=== PATIENT | female | born 1940 | race Caucasian/White ===

== ENCOUNTER → 2016-12-29 | Outpatient (REF) | payer MEDICARE ==
[2016-12-29 17:53] LABS: MEAN CORPUSCULAR HEMOGLOBIN 30.4 pg (27.0-33.0); MEAN CORPUSCULAR HGB CONC 33.2 g/dl (32.0-36.5); MEAN CORPUSCULAR VOLUME 91.3 fl (80.0-96.0); RED CELL DISTRIBUTION WIDTH 13.6 % (11.5-14.5); WHITE BLOOD COUNT 8.1 K/mm3 (4.0-10.0)
== END ==
LOC: M LABDRAWC 16:18
PROVIDERS: ATTEND Internal Medicine Gastroenterology
DX: R10.9 Unspecified abdominal pain (principal)

== ENCOUNTER → 2017-01-22 | Outpatient (REF) | payer MEDICARE ==
[2017-01-22 12:53] LABS: MICROSCOPIC INDICATED? MAN YES (NO)
[2017-01-22 12:56] LABS: BACTERIA, URINE NONE SEEN; HYALINE CAST, URINE NONE SEEN /lpf (0-1); MICROSCOPIC EXAM PERFORMED; RBC, URINE 0-1 /hpf (0-3); SQUAMOUS EPITHELIAL CELL URINE NONE SEEN /hpf (SMALL AMT)
== END ==
LOC: M LAB REF 12:24
PROVIDERS: ATTEND Internal Medicine
DX: R39.15 Urgency of urination (principal)

== ENCOUNTER → 2017-03-12 | Outpatient (REF) | payer MEDICARE | LOC: M LAB REF 16:22 | PROVIDERS: ATTEND Obstetrics & Gynecology | DX: N39.3 Stress incontinence (female) (male) (principal) ==

== ENCOUNTER → 2017-05-28 | Outpatient (CLI) | payer MEDICARE ==
--- NOTE | 2017-05-28 10:12 | REPMRS ---
Patient History The patient states she had a clinical breast exam in 08/23 Patient is postmenopausal and has history of skin cancer at age 66. Family history of prostate cancer in maternal cousin. Took hormonal contraceptives for 1 year. Took estrogen for 2 years. Took progesterone for 2 years. Took unspecified hormones for 4 years. Digital Woman Screen Mammo: May 28, 2017 - Exam #: [id number] Bilateral CC and MLO view(s) were taken. Technologist: Ewa Rajan, Technologist Prior study comparison: August 12, 2015, digital woman screen mammo performed at [facility]. August 09, 2014, bilateral bilat screen digital mammo, performed at [facility] ([facility]). August 08, 2013, bilateral bilat screen digital mammo, performed at [facility] ([facility]). FINDINGS: There are scattered fibroglandular densities. There has been no change in the appearance of the mammogram from the prior studies. There is a mild amount of scattered fibroglandular density which is fairly symmetric. There is no interval development of dominant mass, architectural distortion, or clustered microcalcification suggestive of malignancy. ASSESSMENT: BI-RADS/ACR category 1 mammogram. Negative. Recommendation Routine screening mammogram in 1 year (for women over age 40). This mammogram was interpreted with the aid of an FDA-approved computer-aided dectection system. Electronically Signed By: Italo Gates MD 05/28/17 [id number]
== END ==
LOC: M WHC 09:25
PROVIDERS: ATTEND Internal Medicine
DX: Z12.31 Encounter for screening mammogram for malignant neoplasm of breast (principal)

== ENCOUNTER → 2018-09-23 | Outpatient (REF) | payer MEDICARE ==
[2018-09-23 13:09] LABS: APPEARANCE, URINE HAZY (CLEAR); BACTERIA, URINE AUTO 2+ (NEGATIVE); BILIRUBIN, URINE AUTO NEGATIVE (NEGATIVE); BLOOD, URINE BLOOD 2+ (NEGATIVE); COLOR, URINE YELLOW (YELLOW); GLUCOSE, URINE (UA) AUTO NEGATIVE (NEGATIVE); KETONE, URINE AUTO NEGATIVE (NEGATIVE); LEUKOCYTE ESTERASE, URINE AUTO 3+ (NEGATIVE); NITRITE, URINE AUTO NEGATIVE (NEGATIVE); PROTEIN, URINE AUTO NEGATIVE (NEGATIVE); RBC, URINE AUTO 10 /HPF (0-3); SPECIFIC GRAVITY URINE AUTO 1.005 (1.002-1.035); SQUAMOUS EPITHELIAL CELL UR AU 0 /HPF (0-6); UROBILINOGEN, URINE AUTO 0.2 mg/dL (0.0-2.0); WBC, URINE AUTO TNTC /HPF (0-3)
== END ==
LOC: M LAB REF 12:24
DX: R39.89 Other symptoms and signs involving the genitourinary system (principal)
CPT/HCPCS: 81001

== ENCOUNTER → 2018-12-25 | Outpatient (REF) | payer MEDICARE ==
[2018-12-25 13:23] LABS: CLOSTRIDIUM DIFFICILE PCR NEGATIVE (NEGATIVE)
== END ==
LOC: M LAB REF 10:47
PROVIDERS: ATTEND Internal Medicine Gastroenterology
DX: R19.7 Diarrhea, unspecified (principal)

== ENCOUNTER → 2019-03-30 | Outpatient (REF) | payer MEDICARE | LOC: M LAB REF 16:06 | PROVIDERS: ATTEND Physician Assistant | DX: R30.0 Dysuria (principal) ==

== ENCOUNTER → 2019-11-16 | Outpatient (REF) | payer MEDICARE ==
[2019-11-16 18:41] LABS: BASO # 0.1 10^3/uL (0.0-0.2); BASO % 0.8 % (0.0-1.0); EOS # 0.2 10^3/uL (0.0-0.5); EOS % 2.7 % (0.0-3.0); HEMATOCRIT 34.1 % (36.0-47.0); HEMOGLOBIN 11.1 g/dl (12.0-15.5); LYMPH # 2.4 10^3/uL (1.5-5.0); LYMPH % 33.1 % (24.0-44.0); MEAN CORPUSCULAR HEMOGLOBIN 29.8 pg (27.0-33.0); MEAN CORPUSCULAR HGB CONC 32.6 g/dl (32.0-36.5); MEAN CORPUSCULAR VOLUME 91.7 fl (80.0-96.0); MONO # 0.7 10^3/uL (0.0-0.8); MONO % 8.8 % (0.0-5.0); NEUTROPHILS % 54.3 % (36.0-66.0); PLATELET COUNT, AUTOMATED 220 10^3/uL (150-450); RED BLOOD COUNT 3.72 10^6/uL (4.00-5.40); WHITE BLOOD COUNT 7.4 10^3/uL (4.0-10.0)
[2019-11-16 19:08] LABS: CALCIUM LEVEL 9.1 MG/DL (8.8-10.2); CREATININE FOR GFR 1.15 MG/DL (0.55-1.30); GLOMERULAR FILTRATION RATE 48.5 (>39); MAGNESIUM LEVEL 2.1 MG/DL (1.8-2.4); POTASSIUM SERUM 4.6 MEQ/L (3.5-5.1)
== END ==
LOC: M LABDRAWC 18:09
PROVIDERS: ATTEND Internal Medicine
DX: D64.9 Anemia, unspecified (principal); E83.42 Hypomagnesemia; I10 Essential (primary) hypertension

== ENCOUNTER → 2019-11-20 | Outpatient (REF) | payer MEDICARE ==
[2019-11-20 18:52] LABS: PERCENT SATURATION 26.1 % (13.2-45.0)
== END ==
LOC: M LAB REF 16:54
PROVIDERS: ATTEND Internal Medicine
DX: D64.9 Anemia, unspecified (principal)

== ENCOUNTER → 2019-12-19 | Outpatient (REF) | payer MEDICARE ==
[2019-12-19 17:07] LABS: BASO # 0.1 10^3/uL (0.0-0.2); BASO % 0.9 % (0.0-1.0); EOS # 0.3 10^3/uL (0.0-0.5); HEMATOCRIT 34.9 % (36.0-47.0); HEMOGLOBIN 11.2 g/dl (12.0-15.5); LYMPH # 2.4 10^3/uL (1.5-5.0); LYMPH % 35.6 % (24.0-44.0); MEAN CORPUSCULAR HEMOGLOBIN 29.9 pg (27.0-33.0); MEAN CORPUSCULAR HGB CONC 32.1 g/dl (32.0-36.5); MEAN CORPUSCULAR VOLUME 93.1 fl (80.0-96.0); MONO # 0.7 10^3/uL (0.0-0.8); MONO % 9.7 % (0.0-5.0); NEUTROPHILS # 3.4 10^3/uL (1.5-8.5); NEUTROPHILS % 49.4 % (36.0-66.0); PLATELET COUNT, AUTOMATED 225 10^3/uL (150-450); RED BLOOD COUNT 3.75 10^6/uL (4.00-5.40); WHITE BLOOD COUNT 6.8 10^3/uL (4.0-10.0)
[2019-12-19 17:35] LABS: CREATININE FOR GFR 1.13 MG/DL (0.55-1.30); GLOMERULAR FILTRATION RATE 49.4 (>39); POTASSIUM SERUM 4.9 MEQ/L (3.5-5.1)
== END ==
LOC: M LABDRAWC 16:27
PROVIDERS: ATTEND Internal Medicine
DX: Z00.00 Encounter for general adult medical examination without abnormal findings (principal)

== ENCOUNTER → 2020-01-17 | Outpatient (REF) | payer MEDICARE ==
[2020-01-17 16:45] LABS: BASO # 0.1 10^3/uL (0.0-0.2); BASO % 0.9 % (0.0-1.0); EOS # 0.3 10^3/uL (0.0-0.5); EOS % 4.2 % (0.0-3.0); HEMATOCRIT 34.7 % (36.0-47.0); HEMOGLOBIN 11.3 g/dl (12.0-15.5); LYMPH # 2.5 10^3/uL (1.5-5.0); LYMPH % 38.6 % (24.0-44.0); MEAN CORPUSCULAR HEMOGLOBIN 29.7 pg (27.0-33.0); MEAN CORPUSCULAR HGB CONC 32.6 g/dl (32.0-36.5); MEAN CORPUSCULAR VOLUME 91.1 fl (80.0-96.0); MONO # 0.7 10^3/uL (0.0-0.8); MONO % 10.8 % (0.0-5.0); NEUTROPHILS # 2.9 10^3/uL (1.5-8.5); PLATELET COUNT, AUTOMATED 234 10^3/uL (150-450); RED BLOOD COUNT 3.81 10^6/uL (4.00-5.40); WHITE BLOOD COUNT 6.5 10^3/uL (4.0-10.0)
[2020-01-17 17:22] LABS: CREATININE FOR GFR 1.08 MG/DL (0.55-1.30); GLOMERULAR FILTRATION RATE 52.1 (>39); POTASSIUM SERUM 4.8 MEQ/L (3.5-5.1)
== END ==
LOC: M LABDRAWC 16:22
PROVIDERS: ATTEND Internal Medicine
DX: Z13.89 Encounter for screening for other disorder (principal); D64.9 Anemia, unspecified

== ENCOUNTER → 2020-01-24 | Outpatient (REF) | payer MEDICARE ==
[2020-01-24 12:23] LABS: CALCIUM LEVEL 8.7 MG/DL (8.8-10.2); CREATININE FOR GFR 1.18 MG/DL (0.55-1.30); MAGNESIUM LEVEL 2.3 MG/DL (1.8-2.4); POTASSIUM SERUM 3.9 MEQ/L (3.5-5.1)
== END ==
LOC: M LABDRAWC 11:37
PROVIDERS: ATTEND Internal Medicine
DX: N18.3 Chronic kidney disease, stage 3 (moderate) (principal); E83.42 Hypomagnesemia

== ENCOUNTER → 2020-10-11 | Outpatient (REF) | payer MEDICARE ==
[2020-10-11 16:18] LABS: BASO % 0.6 % (0.0-1.0); EOS # 0.2 10^3/uL (0.0-0.5); EOS % 2.5 % (0.0-3.0); HEMATOCRIT 35.5 % (36.0-47.0); HEMOGLOBIN 11.5 g/dl (12.0-15.5); LYMPH # 2.5 10^3/uL (1.5-5.0); MEAN CORPUSCULAR HEMOGLOBIN 29.9 pg (27.0-33.0); MEAN CORPUSCULAR HGB CONC 32.4 g/dl (32.0-36.5); MEAN CORPUSCULAR VOLUME 92.2 fl (80.0-96.0); MONO # 0.7 10^3/uL (0.0-0.8); MONO % 10.2 % (0.0-5.0); NEUTROPHILS # 3.1 10^3/uL (1.5-8.5); NEUTROPHILS % 47.5 % (36.0-66.0); PLATELET COUNT, AUTOMATED 208 10^3/uL (150-450); RED BLOOD COUNT 3.85 10^6/uL (4.00-5.40); WHITE BLOOD COUNT 6.4 10^3/uL (4.0-10.0)
[2020-10-11 16:55] LABS: CALCIUM LEVEL 9.2 MG/DL (8.8-10.2); CREATININE FOR GFR 1.39 MG/DL (0.55-1.30); GLOMERULAR FILTRATION RATE 38.8 (>32); MAGNESIUM LEVEL 2.1 MG/DL (1.8-2.4); POTASSIUM SERUM 4.3 MEQ/L (3.5-5.1); THYROID STIMULATING HORMONE 3.09 uIU/ML (0.358-3.740)
== END ==
LOC: M LABDRAWC 15:42
PROVIDERS: ATTEND Internal Medicine
DX: I12.9 Hypertensive chronic kidney disease with stage 1 through stage 4 chronic kidney disease, or unspecified chronic kidney disease (principal); E03.9 Hypothyroidism, unspecified; E83.42 Hypomagnesemia; N18.9 Chronic kidney disease, unspecified; D63.1 Anemia in chronic kidney disease

== ENCOUNTER → 2020-10-28 | Outpatient (REF) | payer MEDICARE ==
[2020-10-28 17:17] LABS: CALCIUM LEVEL 8.6 MG/DL (8.8-10.2); CREATININE FOR GFR 1.16 MG/DL (0.55-1.30); GLOMERULAR FILTRATION RATE 47.9 (>32); POTASSIUM SERUM 3.8 MEQ/L (3.5-5.1)
== END ==
LOC: M LABDRAWC 16:08
PROVIDERS: ATTEND Internal Medicine
DX: I12.9 Hypertensive chronic kidney disease with stage 1 through stage 4 chronic kidney disease, or unspecified chronic kidney disease (principal)

== ENCOUNTER → 2021-01-08 | Outpatient (REF) | payer MEDICARE | LOC: M LAB REF 16:44 | PROVIDERS: ATTEND Internal Medicine | DX: R30.0 Dysuria (principal) ==

== ENCOUNTER → 2021-04-11 | Outpatient (CLI) | payer MEDICARE ==
--- NOTE | 2021-04-12 17:12 | REPVR ---
PROCEDURE INFORMATION: Exam: MR Head Without Contrast Exam date and time: 04/11/2021 3:08 PM Age: 80 years old Clinical indication: Other: Lt side weakness w/ vertigo TECHNIQUE: Imaging protocol: MR of the head without contrast. COMPARISON: No relevant prior studies available. FINDINGS: Brain: The brain demonstrates moderate generalized volume loss. Foci of increased signal intensity in the deep and subcortical white matter on the T2 weighted imaging most likely representing mild chronic small vessel ischemic change. On the diffusion-weighted sequence, small focus of increased signal intensity in the right midline aspect of the splenium of the corpus callosum, images 20 and 21 of series 404. There is correlative slightly diminished signal intensity on the ADC map. The T2 weighted sequence demonstrates a subtle focus of crescentic increased signal intensity on image 16 of series 601. No parenchymal hemorrhage. Cerebral ventricles: The ventricles are enlarged in keeping with volume loss. Bones/joints: Unremarkable. Paranasal sinuses: Normal as visualized. No acute sinusitis. Mastoid air cells: Normal as visualized. No mastoid effusion. Orbital cavity: Unremarkable. Soft tissues: Unremarkable. 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 Electronically signed by: Pili Hernandez On 04/12/2021 17:12:08 PM
== END ==
LOC: M RAD 13:53
PROVIDERS: ATTEND Internal Medicine
DX: I63.9 Cerebral infarction, unspecified (principal); R42 Dizziness and giddiness

== ENCOUNTER → 2021-04-21 | Outpatient (CLI) | payer MEDICARE ==
--- NOTE | 2021-04-21 11:45 | REP ---
INDICATION: NEW CVA COMPARISON: 02/27/2010. TECHNIQUE: Real-time ultrasound evaluation and duplex Doppler interrogation of the extracranial carotid vasculature is performed. FINDINGS: There is mild plaquing and narrowing in both carotid bulbs extending into the internal and external carotid arteries. Luminal narrowing is less than 50%. There is no evidence of hemodynamically significant stenosis of either internal carotid artery. Normal flow velocities are seen. The vertebral arteries demonstrate normal direction of flow. RIGHT LEFT Peak systolic velocity ICA 107.4 cm/s 104.7 cm/s End diastolic velocity ICA 31.7 cm/s 26.2 cm/s Peak systolic velocity CCA 90.7 cm/s 119.1cm/s Peak systolic velocity ECA 66.4 cm/s 86.1 cm/s ICA/CCA ratio 1.2 0.9 IMPRESSION: Bilateral luminal narrowing of the internal carotid arteries less than 50%. No evidence of hemodynamically significant stenosis. <Electronically signed by Dao Espinal > 04/21/21 [id number]
== END ==
LOC: M RAD 10:43
PROVIDERS: ATTEND Internal Medicine
DX: I63.9 Cerebral infarction, unspecified (principal)

== ENCOUNTER 2021-06-09 07:39 | Inpatient (IN) | payer MEDICARE ==
[~2021-06-09] VITALS: Ht 147.3 cm; Wt 58.2 kg
[2021-06-09] MEDS ORDERED: ATOR1TAB21 PO (08:26)
[2021-06-09] MEDS ORDERED: PANT40TA29 PO (08:26)
[2021-06-09] MEDS ORDERED: LORA1TAB4 PO (08:26)
[2021-06-09] MEDS ORDERED: SERT25TA21 PO (08:26)
[2021-06-09] MEDS ORDERED: FURO20TA2 PO (08:26)
[2021-06-09] MEDS ORDERED: ATOR1TAB19 (08:26)
[2021-06-09] MEDS ORDERED: SPIR-10 PO (08:26)
[2021-06-09] MEDS ORDERED: SYNT75TA PO (08:26)
[2021-06-09] MEDS ORDERED: POTA1TAB23 PO (08:26)
[2021-06-09] MEDS ORDERED: BUSP10TA PO (08:26)
[2021-06-09] MEDS ORDERED: AMLO2.5T3 PO (08:26)
[2021-06-09] MEDS ORDERED: ATEN25TA PO (08:26)
[2021-06-09] MEDS ORDERED: CLOPIDOGREL 75 MG TAB PO SCH (09:00)
--- NOTE | 2021-06-09 09:10 | REP ---
INDICATION: CVA - Nursing interventions must not delay CT. COMPARISON: None. TECHNIQUE: CT brain performed in the axial plane. Coronal reconstruction images are performed. FINDINGS: There is moderate atrophy. There is no midline shift or mass effect. There are mild patchy periventricular small vessel ischemic changes likely chronic in nature. There is no acute intracranial hemorrhage. There is no extra-axial fluid collection. Calvarium is intact. The visualized paranasal sinuses and mastoid air cells are clear. There are vascular calcifications in the carotid siphons. IMPRESSION: Chronic atrophy and periventricular small vessel ischemic changes. No acute intracranial hemorrhage, midline shift or mass effect. <Electronically signed by Dao Espinal > 06/09/21 [id number]
--- NOTE | 2021-06-09 09:14 | REP ---
INDICATION: CVA. COMPARISON: 04/25/2015. TECHNIQUE: Single portable AP view of the chest was performed. FINDINGS: There is no acute infiltrate or pulmonary edema. There is mild left ventricular prominence. There is mild calcification and tortuosity of the thoracic aorta. The mediastinal silhouette is otherwise unremarkable. IMPRESSION: No acute pulmonary disease. <Electronically signed by Dao Espinal > 06/09/21 0920
[2021-06-09] MEDS ORDERED: MECL-86 PO (09:15)
[2021-06-09] MEDS ORDERED: D31000TA2 PO (09:15)
[2021-06-09] MEDS ORDERED: META28.32 PO (09:15)
[2021-06-09] MEDS ORDERED: CVS500CA5 PO (09:15)
[2021-06-09] MEDS ORDERED: VITA-158 PO (09:15)
[2021-06-09] MEDS ORDERED: KRIL1CAP7 PO (09:15)
[2021-06-09] MEDS ORDERED: VITMTA PO (09:15)
[2021-06-09] MEDS ORDERED: ASPI81TA26 PO (09:15)
[2021-06-09] MEDS ORDERED: ALLE180T33 PO (09:15)
[2021-06-09] MEDS ORDERED: CITRTAB16 PO (09:15)
[2021-06-09] MEDS ORDERED: COEN100T PO (09:15)
[2021-06-09] MEDS ORDERED: THER1GEL OU (09:15)
[2021-06-09] MEDS ORDERED: ACET500T15 PO (09:15)
[2021-06-09] MEDS ORDERED: HOME MED LIST COMPLETE! XX SCH (09:20)
[2021-06-09 09:30] LABS: INR 0.95; PARTIAL THROMBOPLASTIN TIME 30.7 SECONDS (25.9-37.0); PROTHROMBIN TIME 13.1 SECONDS (12.7-14.5)
[2021-06-09 09:32] LABS: BASO # 0.1 10^3/uL (0.0-0.2); BASO % 0.9 % (0.0-1.0); EOS % 0.4 % (0.0-3.0); HEMATOCRIT 38.8 % (36.0-47.0); HEMOGLOBIN 12.8 g/dl (12.0-15.5); LYMPH # 1.7 10^3/uL (1.5-5.0); LYMPH % 22.1 % (24.0-44.0); MEAN CORPUSCULAR HEMOGLOBIN 29.4 pg (27.0-33.0); MONO # 0.7 10^3/uL (0.0-0.8); MONO % 8.2 % (2.0-8.0); NEUTROPHILS # 5.3 10^3/uL (1.5-8.5); NEUTROPHILS % 67.4 % (36.0-66.0); PLATELET COUNT, AUTOMATED 184 10^3/uL (150-450); RED BLOOD COUNT 4.36 10^6/uL (4.00-5.40); WHITE BLOOD COUNT 7.9 10^3/uL (4.0-10.0)
[2021-06-09 09:43] LABS: CK-MB VALUE MASS 1.1 NG/ML (<3.6); CPK CREATINE PHOSPHOKINASE 242 U/L (26-192); MB/CK RELATIVE INDEX 0.45 (< OR =4); TROPONIN I < 0.02 NG/ML (< 0.10)
[2021-06-09 09:54] LABS: RSV AMPLIFICATION NEGATIVE (NEGATIVE)
[2021-06-09] MEDS ORDERED: LABETALOL HCL 200 MG in D5W 160 ML IV SCH (11:45)
[2021-06-09] MEDS ORDERED: MECLIZINE 25 MG TABLET PO PRN (11:45)
--- NOTE | 2021-06-09 12:06 | HPEPDOC ---
General Date of Admission 06/09/21 Date of Service: Jun 09, 2021 Primary Care Physician: Lauren Kaufman Attending Physician: Rehan Mejia MD Chief Complaint The patient is a 80-year-old female admitted with a reason for visit of Dizziness/Weakness. Source: Patient, RN/MD History of Present Illness Ms. Wilson is an 80-year-old woman who was in her usual state of health last night. This morning she woke up around 5 AM with a strong sense of vertigo "like I was going to fall off the face of the world." Although she was feeling sev erely dizzy it was not the certainly linked to any specific motion. She was not able to walk in a straight line at home. She experienced a similar episode in February of this year. She thought that that was an exacerbation of her known benign positional vertigo and so she did not seek care. She saw her physician in a couple months later who ordered an additional evaluation that included an MRI and carotid chest sounds. The MRI showed subacute stroke and the carotid ultrasound did not show significant stenosis. She went to see neurology after that and they told her if she has another episode she should present to the emergency department. Because this episode is very similar to that one she is h ere for further evaluation and treatment. Home Medications Scheduled Amlodipine Besylate (Amlodipine Besylate) 2.5 Mg Tablet, 1.25 MG PO QHS, (Re ported) Ascorbic Acid (Vitamin C) 500 Mg Tablet, 500 MG PO QPM, (Reported) Aspirin (Aspirin EC) 81 Mg Tablet.dr, 81 MG PO QPM, (Reported) Atenolol (Atenolol) 25 Mg Tablet, 25 MG PO BID, (Reported) Atorvastatin Calcium (Atorvastatin Calcium) 20 Mg Tablet, 20 MG PO QHS, (Re ported) Buspirone HCl (Buspirone HCl) 10 Mg Tablet, 5 MG PO BID, (Reported) Calcium Citrate/Vitamin D3 (Citracal + D Maximum Caplet) 1 Each Tablet, 1 TAB PO QPM, (Reported) Carboxymethylcellulose Sodium (Thera Tears) 1 Each Droper.gel, 1 DROP OU QHS, (Reported) Cholecalciferol (Vitamin D3) (Vitamin D3) 1,000 Unit Tablet, 2,000 UNITS PO QPM, (Reported) Cranberry Fruit Extract (Cranberry) 500 Mg Capsule, 500 MG PO QPM, (Reported) Fexofenadine HCl (Samantha Allergy) 180 Mg Tablet, 180 MG PO DAILY, (Reported) Furosemide (Furosemide) 20 Mg Tablet, 30 MG PO BID, (Reported) TAKES 0930/1900 Krill/Om-3/Dha/Epa/Phospho/Ast (Krill Oil 1,000 mg Softgel) 1 Each Capsule, 1,000 MG PO QPM, (Reported) Levothyroxine Sodium (Synthroid) 75 Mcg Tablet, 75 MCG PO QAM, (Reported) Multivitamins (Thera M Plus Tablet) 1 Each Tablet, 1 TAB PO QPM, (Reported) Pantoprazole Sodium (Pantoprazole Sodium) 40 Mg Tablet.dr, 40 MG PO BID, (Reported) Potassium Chloride (Potassium Chloride) 10 Meq Tablet.er, 5 MEQ PO QPM, (Reported) Psyllium Husk (with Sugar) (Metamucil Powder) 575 Gm Powder, 2 TSP PO QPM, (Reported) Sertraline HCl (Sertraline HCl) 25 Mg Tablet, 25 MG PO DAILY, (Reported) Spironolactone (Spironolactone) 25 Mg Tablet, 12.5 MG PO DAILY, (Reported) Ubidecarenone (Coenzyme Q10) 100 Mg Tablet, 100 MG PO QPM, (Reported) Scheduled PRN Acetaminophen (Acetaminophen) 500 Mg Tablet, 1,000 MG PO Q6H PRN for PAIN LEVEL 1-5, (Reported) Lorazepam (Lorazepam) 1 Mg Tablet, 0.5 MG PO TID PRN for ANXIETY, (Reported) Meclizine HCl (Meclizine HCl) 25 Mg Tablet, 25 MG PO TID PRN for DIZZINESS, (Reported) Allergies Coded Allergies: Penicillins (Verified Allergy, Severe, ANAPHYLAXIS, 06/09/21) celecoxib (Verified Allergy, Intermediate, RASH, 06/09/21) Cephalosporins (Verified Allergy, Mild, rash, 06/09/21) omeprazole (Verified Allergy, Mild, rash, 06/09/21) Aminoglycosides (Verified Allergy, Unknown, unknown, 06/09/21) Contrast Media (Verified Allergy, Unknown, 06/30/10) Quinolones (Verified Allergy, Unknown, unknown, 06/09/21) bacitracin (Verified Allergy, Unknown, RASH, 06/09/21) metronidazole (Verified Allergy, Unknown, unknown, 06/09/21) ANAHI Inhibitors (Verified Adverse Reaction, Unknown, "makes my ankles feel like they are breaking"., 06/09/21) Sulfa (Sulfonamide Antibiotics) (Verified Adverse Reaction, Unknown, "need to take lower doses or it bothers me"., 06/09/21) codeine (Verified Adverse Reaction, Unknown, "can only take lower doses", 06/09/21) Past Medical History Medical History Hypertension, hyperlipidemia, hypothyroidism, benign positional vertigo, situational anxiety Surgical History Tonsillectomy and adenoidectomy (the 0s), uterine suspension (1965), partial ovarian cystectomy (1976), right shoulder rotator cuff repair (2006), salivary tumor excision (2009) Family History She reports that heart conditions and her family. Her father of "heart problems". Mother of "heart problems and a lot of strokes". She has a brother who of an [place], he was also known to have COPD. 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 They've moved to the downstairs in their home which means that she has also needs on one floor. Her house has a ramp for access. A-FIB/CHADSVASC A-FIB History Current/History of A-Fib/PAF?: No Current PO Anticoag Therapy: No Review of Systems Constitutional: Reports: Weakness; Denies: Chills, Fever Eyes: Denies: Vision change ENT: Denies: Head Aches, Dysphagia Skin: Denies: Rash, Lesions, Breakdown Pulmonary: Denies: Dyspnea, Cough Cardiovascular: Reports: Lt Headedness; Denies: Chest Pain, Palpitations, Orthopnea Gastrointestinal: Denies: Nausea, Vomiting, Abdominal Pain, Diarrhea Genitourinary: Reports: Other Symptoms (she reports she uses pessary); Denies: Dysuria, Hematuria Endocrine: Denies: Polydipsia, Polyphagia, Polyuria Neurological: Reports: Weakness, Incoordination, Other Symptoms (vertigo that does not seem to be associated with positional changes); Denies: Change in speech, Confusion Psych: Reports: Mood Normal; Denies: Depression, Memory Issues Physical Examination General Exam: Positive: Alert, Cooperative (laying comfortably in the ER stretcher when I entered the room), No Acute Distress Eye Exam: Positive: PERRLA, Conjunctiva & lids normal, EOMI; Negative: Sclera icteric ENT Exam: Positive: Atraumatic, Mucous membr. moist/pink, Pharynx Normal, Tongue Midline Neck Exam: Positive: Supple; Negative: thyromegaly, Lymphadenopathy Chest Exam: Positive: Clear to auscultation, Normal air movement Heart Exam: Positive: Rate Normal, Regular Rhythm, Normal S1, Normal S2, Rubs Telemetry: Positive: No significant arrhythmia Abdomen Exam: Positive: Normal bowel sounds, Soft; Negative: Tenderness, Hepatospenomegaly Extremity Exam: Positive: Normal pulses; Negative: Edema Skin Exam: Positive: Nl turgor and temperature; Negative: Lesion Neuro Exam: Positive: Normal Speech, Sensation Intact, Cranial Nerves 3-12 NL, Reflexes 2+ (at the patellar and brachioradialis tendons bilaterally), Other (there is no dysdiadochokinesia. Finger to nose testing is intact. She is able to do xoxa-[id number]-[id number] motions with her right foot on her left leg, but she is unable to complete this task with her left foot on her right leg); Negative: Strength at 5/5 X4 ext (her strength is 5 out of 5 in the biceps triceps and deltoids bilaterally. Is 5 out of 5 for hip flexors and dorsiflexors and plantar flexors on the right, but 4- out of 5 for hip flexors and dorsiflexors and plantar flexors on the left) Psych Exam: Positive: Mental status NL, Mood NL, Anxiety, Oriented x 3 Other physical findings Noncontrast CT of the head shows IMPRESSION: Chronic atrophy and periventricular small vessel ischemic changes. No acute intracranial hemorrhage, midline shift or mass effect. There are MRI studies pending at the time of admission. Vital Signs Vital Signs Date Time Temp Pulse Resp B/P (MAP) Pulse Ox O2 Delivery O2 Flow Rate FiO2 06/09/21 08:16 06/09/21 07:40 96.9 59 15 100 Room Air Laboratory Data Labs 24H Laboratory Tests 2 06/09/21 08:34: Immature Granulocyte % (Auto) 1.0, Neutrophils (%) (Auto) 67.4H, Lymphocytes (%) (Auto) 22.1L, Monocytes (%) (Auto) 8.2H, Eosinophils (%) (Auto) 0.4, Basophils (%) (Auto) 0.9, Neutrophils # (Auto) 5.3, Lymphocytes # (Auto) 1.7, Monocytes # (Auto) 0.7, Eosinophils # (Auto) 0.0, Basophils # (Auto) 0.1, Nucleated Red Blood Cells % (auto) 0.3H, Prothrombin Time 13.1, Prothromb Time International Ratio 0.95, Activated Partial Thromboplast Time 30.7, Total Creatine Kinase 242H, Creatine Kinase MB 1.1, Creatine Kinase MB Relative Index 0.45, Troponin I < 0.02, Coronavirus (COVID-19)(PCR) NEGATIVE, Influenza Type A (RT-PCR) NEGATIVE, Influenza Type B (RT-PCR) NEGATIVE, Respiratory Syncytial Virus (PCR) NEGATIVE 06/09/21 08:58: Bedside Glucose (Misc Panel) 111H, POC Glucose (Misc Panel) 117H, POC Sodium (Misc Panel) 139, POC Potassium (Misc Panel) 3.5, POC Chloride (Misc Panel) 102, POC Total CO2 (Misc Panel) 25.0, POC Blood Urea Nitrogen (Misc Panel 32H, POC Ionized Calcium (Misc Panel) 4.4L, POC Creatinine (Misc Panel) 1.2, POC Hematocrit (Misc Panel) 38.0 06/09/21 09:02: POC Prothrombin Time (Misc) 13.6, POC INR (Misc) 1.1 CBC/BMP Laboratory Tests 06/09/21 08:34 Problems (1) Non-hemorrhagic cerebrovascular accident (CVA) Status: Acute Discussed With: Nurse, Patient Problem Specific Plan: Consult Specialist Problem Text: Clinically there clearly has been an acute change since this morning. She woke with symptoms, so she is not candidate for TPA. MRI studies are pending at the time of admission. I will admit her with telemetry. She'll be on full dose aspirin and Plavix. I've consulted neurology. (2) Hypertension Problem Text: Her blood pressure was markedly elevated, like 239/107, at the time of my evaluation. She is not complaining of any symptoms of this. Because of this I initiated a labetalol drip. However, after she got her usual home medications and before she left the ER her systolic blood pressure was consistently below 180. Therefore the drip was never started and discontinued. We'll need to continue to monitor her blood pressure carefully, although permissive hypertension is certainly useful concept in this setting. (3) Hyperlipidemia Status: Chronic Problem Text: Continue home medications, monitor. (4) Anxiety Status: Chronic Problem Text: She certainly does have anxiety about how her will be cared for while she is absent here in the hospital. This makes sense, but is unfortunately something we cannot fix. Continue home medications, monitor. (5) Hypothyroidism Problem Text: Continue home medications, monitor. Plan / VTE VTE Prophylaxis Ordered?: Yes (TEDS and sequentials) Rehan Mejia MD Jun 09, 2021 12:06 pm
--- NOTE | 2021-06-09 12:07 | REPVR ---
PROCEDURE INFORMATION: Exam: MRA Head Without Contrast; Arteriography Exam date and time: 06/09/2021 10:24 AM Age: 80 years old Clinical indication: Dizziness and giddiness; Patient HX: RO CVA and large vessel occlusion; Dizzy; Recent abn mri TECHNIQUE: Imaging protocol: Magnetic resonance angiography head without contrast. Exam focused on the arteries. COMPARISON: CT Head without contrast 06/09/2021 8:32 AM FINDINGS: ANTERIOR CIRCULATION: Right internal carotid artery: Intracranial segment is patent with no significant stenosis. No aneurysm. Right middle cerebral artery: No occlusion or significant stenosis. No aneurysm. Right anterior cerebral artery: No occlusion or significant stenosis. No aneurysm. Left internal carotid artery: Intracranial segment is patent with no significant stenosis. No aneurysm. Left middle cerebral artery: No occlusion or significant stenosis. No aneurysm. Left anterior cerebral artery: No occlusion or significant stenosis. No aneurysm. POSTERIOR CIRCULATION: Right vertebral artery: No occlusion or significant stenosis. No aneurysm. Left vertebral artery: No occlusion or significant stenosis. No aneurysm. Basilar artery: No occlusion or significant stenosis. No aneurysm. Right posterior cerebral artery: No occlusion or significant stenosis. No aneurysm. Left posterior cerebral artery: No occlusion or significant stenosis. No aneurysm. IMPRESSION: No stenosis or occlusion. Electronically signed by: Fco Garner On 06/09/2021 12:06:41 PM
--- NOTE | 2021-06-09 12:14 | REPVR ---
PROCEDURE INFORMATION: Exam: MRA Neck Without Contrast Exam date and time: 06/09/2021 10:24 AM Age: 80 years old Clinical indication: Dizziness and giddiness; Patient HX: RO CVA and large vessel occlusion; Dizzy; Recent abn mri TECHNIQUE: Imaging protocol: Magnetic resonance angiography of the neck without contrast. COMPARISON: CT Neck without contrast 05/29/2015 11:51 AM FINDINGS: Right common carotid artery: No stenosis. No dissection or occlusion. Right internal carotid artery: No stenosis of the extracranial segment. No dissection or occlusion. Right external carotid artery: No stenosis. No dissection or occlusion of the origin. Right vertebral artery: No stenosis. No dissection or occlusion. Left common carotid artery: No stenosis. No dissection or occlusion. Left internal carotid artery: No stenosis of the extracranial segment. No dissection or occlusion. Left external carotid artery: No stenosis. No dissection or occlusion of the origin. Left vertebral artery: No stenosis. No dissection or occlusion. IMPRESSION: No stenosis or occlusion. REFERENCES: NASCET CRITERIA. The degree of internal carotid artery stenosis is based on NASCET criteria. Normal is no stenosis. Mild is less than 50% stenosis. Moderate is 50-69% stenosis. Severe is 70% to 99% stenosis. Total occlusion is no detectable patent lumen. Electronically signed by: Fco Garner On 06/09/2021 12:13:45 PM
--- NOTE | 2021-06-09 12:51 | REPVR ---
PROCEDURE INFORMATION: Exam: MR Head Without Contrast Exam date and time: 06/09/2021 10:24 AM Age: 80 years old Clinical indication: Dizziness; Additional info: RO CVA and large vessel occlusion; Dizzy; Recent abn mri TECHNIQUE: Imaging protocol: MR of the head without contrast. COMPARISON: CT Head without contrast 06/09/2021 8:32 AM FINDINGS: Brain: Again noted is a tiny area of increased signal on the diffusion-weighted sequence within the splenium of the corpus callosum. This is difficult to confirm on the ADC map. Increased T2 signal and decreased T1 signal is present in this area. The findings are compatible with artifactual T2 shine through from a late subacute/chronic infarct. No new areas of restricted diffusion are seen to suggest acute infarction. There is no acute intracranial hemorrhage, cerebral edema, or midline shift. Age-related cerebral and cerebellar substance loss is present. Scattered increased T2 and FLAIR signal within the periventricular and subcortical white matter is present. This is nonspecific but likely related to chronic microangiopathic ischemic change. Cerebral ventricles: Mild ex vacuo dilation of the lateral and third ventricles is noted. Bones/joints: Unremarkable. Paranasal sinuses: Normal as visualized. No acute sinusitis. Mastoid air cells: Normal as visualized. No mastoid effusion. Orbital cavity: Unremarkable. Soft tissues: Unremarkable. IMPRESSION: 1. No new acute intracranial abnormality. 2. Chronic findings as discussed above. Electronically signed by: Fco Garner On 06/09/2021 12:51:23 PM
[2021-06-09] MEDS ORDERED: PILL CUTTER 1 EACH XX ONE (13:35)
[2021-06-09] MEDS: LEVOTHYROXINE 75MCG TABLET (0.075MG) PO SCH (13:38)
[2021-06-09] MEDS: ASPIRIN 81 MG CHEW TABLET PO SCH ×2 (13:39→13:48)
[2021-06-09] MEDS: FUROSEMIDE 20 MG TAB PO SCH ×2 (13:39→16:36)
[2021-06-09] MEDS: SERTRALINE HCL 25 MG TABLET PO SCH (13:39)
[2021-06-09] MEDS: PANTOPRAZOLE 40MG TAB (PROTONIX) PO SCH ×2 (13:39→21:52)
[2021-06-09] MEDS: busPIRone 5 MG TAB PO SCH ×2 (13:40→21:50)
[2021-06-09] MEDS: SPIRONOLACTONE 12.5MG PER 1/2 TABLET PO SCH (13:40)
[2021-06-09] MEDS: VALSARTAN 80 MG TAB (DIOVAN) PO SCH (13:40)
[2021-06-09] MEDS: atenoloL 25 MG TAB PO SCH ×2 (13:40→21:00)
[2021-06-09] MEDS: ACETAMINOPHEN 500 MG TAB PO PRN ×2 (13:41→21:53)
[2021-06-09 16:05] VITALS: BP 146/86
[2021-06-09 16:15] VITALS: BP 146/86
[2021-06-09] MEDS: D5W/0.45% SODIUM CHLORIDE 1,000 ML IV SCH (16:35)
[2021-06-09 17:00] VITALS: O2SAT 98
[2021-06-09] MEDS: TOPIRAMATE (TopAMAX) 25 MG TAB PO SCH ×2 (18:00→22:02)
[2021-06-09 18:01] VITALS: O2SAT 97
[2021-06-09] MEDS: FEXOFENADINE 60 MG TAB PO SCH (18:10)
--- NOTE | 2021-06-09 19:55 | ECGEPIP ---
[facility] - ED Test Date: 2021-06-09 Pat Name: TRACIE NICOLE Department: Room: - Gender: Female Frame Assembler: DEBBIE : 1940 Requested By: Wes Sanchez Order Number: [id number] Reading MD: Aide Patel Measurements Intervals [place] Rate: 57 P: 59 WA: 168 QRS: -12 QRSD: 86 T: 27 QT: 422 QTc: 410 Interpretive Statements Sinus bradycardia Low voltage QRS Inferior infarct , age undetermined Cannot rule out Anterior infarct , age undetermined No prior Electronically Signed on 06-09-2021 19:54:30 EDT by Aide Patel
[2021-06-09 20:00] VITALS: BP 129/61
[2021-06-09] MEDS ORDERED: VITAMIN D 1,000 INTERNATIONAL UNITS TABLET PO SCH (21:00)
[2021-06-09] MEDS ORDERED: POTASSIUM CHLORIDE 10% LIQ 20 MEQ/15 ML UDC PO SCH (21:00)
[2021-06-09] MEDS ORDERED: ASCORBIC ACID 500 MG TAB PO SCH (21:00)
[2021-06-09] MEDS ORDERED: ATORVASTATIN 20 MG TAB PO SCH (21:00)
[2021-06-09] MEDS ORDERED: MULTIVITAMINS/MINERALS THERAP 1 TAB PO SCH (21:00)
[2021-06-09] MEDS ORDERED: METAMUCIL (PSYLLIUM) PACKET PO SCH (21:00)
[2021-06-09] MEDS ORDERED: CO-ENZYME Q10 50 MG CAP PO SCH (21:00)
[2021-06-10] VITALS: BP 110/50
[2021-06-10] MEDS ORDERED: PILL CUTTER 1 EACH XX PRN (01:10)
[2021-06-10 04:00] VITALS: BP 156/67
[2021-06-10] MEDS: LEVOTHYROXINE 75MCG TABLET (0.075MG) PO SCH (05:22)
[2021-06-10] MEDS: D5W/0.45% SODIUM CHLORIDE 1,000 ML IV SCH (05:22)
[2021-06-10] MEDS: TOPIRAMATE (TopAMAX) 25 MG TAB PO SCH (05:23)
[2021-06-10] MEDS: ACETAMINOPHEN 500 MG TAB PO PRN (05:24)
[2021-06-10 05:41] LABS: HEMATOCRIT 34.5 % (36.0-47.0); HEMOGLOBIN 11.3 g/dl (12.0-15.5); MEAN CORPUSCULAR HEMOGLOBIN 29.5 pg (27.0-33.0); MEAN CORPUSCULAR HGB CONC 32.8 g/dl (32.0-36.5); MEAN CORPUSCULAR VOLUME 90.1 fl (80.0-96.0); PLATELET COUNT, AUTOMATED 191 10^3/uL (150-450); RED BLOOD COUNT 3.83 10^6/uL (4.00-5.40); WHITE BLOOD COUNT 6.7 10^3/uL (4.0-10.0)
[2021-06-10 06:07] LABS: ALBUMIN 3.5 GM/DL (3.2-5.2); BILIRUBIN,TOTAL 0.4 MG/DL (0.2-1.0); CALCIUM LEVEL 8.5 MG/DL (8.8-10.2); CREATININE FOR GFR 1.18 MG/DL (0.55-1.30); GLOMERULAR FILTRATION RATE 46.9 (>32); POTASSIUM SERUM 3.7 MEQ/L (3.5-5.1); TOTAL PROTEIN 6.5 GM/DL (6.4-8.2)
--- NOTE | 2021-06-10 07:10 | CR ---
CONSULTATION DATE: 06/09/2021 REFERRING PHYSICIAN: Rehan Mejia MD REASON FOR CONSULTATION: Dizziness, vertigo and left leg weakness. HISTORY OF PRESENT ILLNESS: Yakelin Wilson is an 80-year-old woman with history of chronic benign positional vertigo with frequent episodes of vertigo described as spinning sensation. She had a severe episode of vertigo in February, a few weeks after her COVID-19 vaccination. She woke up and was unable to walk. The room was spinning. Her son had to come and help her. Her symptoms lasted for several weeks. She recently started feeling better. 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 Carotid ultrasound showed less than 50% bilateral carotid artery stenosis. She was seen at our office last week for these problems. She had done [facility] rehab exercises at [facility] which helped but she did not like her care. She also had history of chronic neck pain with stiffness. She gets periodic weakness of her left arm. She gets occasional headaches. She denies any seizures, dysphagia, orthopnea, diplopia, urinary incontinence, falls or loss of consciousness. This morning, she woke up with dizziness and vertigo. She also felt weakness of her left side. Her left arm improved. She still has lifting her left leg off the bed. She is able to move her left foot reasonably well. She also has on and off lower back pain. DIAGNOSTIC STUDIES: Her MRI scan of brain was reviewed and showed small vessel ischemic disease of brain and prior stroke in splenium of corpus callosum. MRA, brain and neck were reportedly unremarkable. Telemetry showed normal sinus rhythm. PAST MEDICAL HISTORY: Hypertension, dyslipidemia, anxiety, seasonal allergy, hypothyroidism, acid reflux. ALLERGIES: PENICILLIN, CELELBREX, CEPHALOSPORIN, OMEPRAZOLE, AMINOGLYCOSIDE, CONTRAST DYE, QUINOLONES, BACITRACIN, METRONIDAZOLE, SULFA, ANAHI INHIBITORS, CODEINE. HOME MEDICATIONS: 1. Amlodipine 1.25 mg p.o. daily. 2. Aspirin 81 mg p.o. daily. 3. Vitamin C 500 mg p.o. daily. 4. Atenolol 25 mg p.o. b.i.d. 5. Atorvastatin 20 mg p.o. daily. 6. Buspirone 5 mg p.o. b.i.d. 7. Calcium and vitamin D3. 8. Samantha 180 mg p.o. daily. 9. Lasix 20 mg p.o. b.i.d. 10. Levothyroxine 75 mcg p.o. daily. 11. Multivitamin one tablet p.o. daily. 12. Protonix 40 mg p.o. b.i.d. 13. Potassium chloride 5 mEq p.o. daily. 14. Zoloft 25 mg p.o. daily. 15. Spironolactone 12.5 mg p.o. daily. 16. Coenzyme Q10 100 mg p.o. daily. 17. Multivitamin one tablet p.o. daily. SOCIAL HISTORY: She denies smoking, alcohol or illicit drugs. FAMILY HISTORY: Unremarkable and noncontributory. REVIEW OF SYSTEMS: All systems are reviewed and found to be noncontributory except as mentioned in history of present illness. PHYSICAL EXAMINATION: VITAL SIGNS: Temperature 99.3, pulse 57, respiratory rate 18, blood pressure 146/86. HEART: Regular rate and rhythm. LUNGS: Clear to auscultation. ABDOMEN: Soft, nontender, nondistended. EXTREMITIES: No pedal edema. MUSCULOSKELETAL: No abnormalities. SKIN: No rash. NEUROLOGICAL: No signs of meningeal irritation. The patient is awake, alert, oriented to place, person and time. Normal speech, comprehension and repetition. Extraocular muscles are intact. No facial weakness. Tongue and uvula are midline. 5/5 strength in both arms. Left iliopsoas strength is 3/5 and the rest of the left leg is 5/5. Right leg is 5/5. Deep tendon reflexes are 2+ throughout. Normal sensation throughout. Gait was not tested. There is no dysmetria. ASSESSMENT: 1. Benign positional vertigo. 2. Recent stroke in the splenium of corpus callosum in spring. 3. There is concern for TIA. 4. Chronic neck pain. PLAN: 1. Physical and occupational therapy for left leg weakness and vestibular rehab exercises. 2. Trial of Topiramate 25 mg p.o. b.i.d. to prevent episodes of vertigo which have become more frequent. 3. Continue aspirin 81 mg p.o. daily. 4. Continue atorvastatin 20 mg p.o. daily. 5. Follow with our office as planned.
[2021-06-10 07:57] VITALS: BP 146/68
[2021-06-10 08:00] VITALS: BP 146/68
[2021-06-10] MEDS: atenoloL 25 MG TAB PO SCH (08:19)
[2021-06-10] MEDS: FEXOFENADINE 60 MG TAB PO SCH (08:35)
[2021-06-10 08:36] VITALS: BP 146/68
[2021-06-10] MEDS: FUROSEMIDE 20 MG TAB PO SCH (08:36)
[2021-06-10] MEDS: SPIRONOLACTONE 12.5MG PER 1/2 TABLET PO SCH (08:36)
[2021-06-10] MEDS: VALSARTAN 80 MG TAB (DIOVAN) PO SCH (08:36)
[2021-06-10] MEDS: SERTRALINE HCL 25 MG TABLET PO SCH (08:37)
[2021-06-10] MEDS: busPIRone 5 MG TAB PO SCH (08:37)
[2021-06-10] MEDS: PANTOPRAZOLE 40MG TAB (PROTONIX) PO SCH (08:37)
[2021-06-10] MEDS ORDERED: TOPA1TAB PO (08:44)
[2021-06-10] MEDS ORDERED: ASPIRIN 81MG ENTERIC TABLET PO SCH (09:00)
--- NOTE | 2021-06-10 13:09 | DSES ---
DISCHARGE SUMMARY DATE OF ADMISSION: 06/09/2021 DATE OF DISCHARGE: 06/10/2021 [employer]: WILIAN OLVERA MD PRIMARY DISCHARGE DIAGNOSIS: 1. Benign positional vertigo. 2. Recent stroke in the splenium of corpus callosum in the spring. 3. Possible transient ischemic attack. 4. Chronic neck pain. DISCHARGE MEDICATIONS: 1. Topamax 25 mg b.i.d. 2. Aspirin 81 daily. 3. Atorvastatin 20 mg daily. 4. Acetaminophen 1 gram q. 6 as needed. 5. Norvasc 1.25 q.h.s. 6. Ascorbic acid 500 daily. 7. Atenolol 25 b.i.d. 8. Atorvastatin 20 q.h.s. 9. Buspirone 5 mg b.i.d. 10.Citracal plus D one cap q. p.m. 11.TheraTears one drop OU q.h.s. 12.Vitamin D3 2000 units q. p.m. 13.Cranberry 500 q. p.m. 14.Samantha 180 daily. 15.Lasix 30 b.i.d. 16.Krill oil 1 gram q. p.m. 17.Synthroid 75 mcg q. a.m. 18.Ativan 0.5 t.i.d. as needed for anxiety. 19.Meclizine 25 mg t.i.d. as needed for dizziness. 20.Multivitamin one tablet q. p.m. 21.Protonix 40 b.i.d. 22.Potassium 40 mEq q. p.m. 23.Metamucil two teaspoons p.o. q. p.m. 24.Sertraline 25 daily. 25.Spironolactone 12.5 daily. 26.Co-Enzyme q. 100 mg q. p.m. HOSPITAL COURSE: This is an 80-year-old female admitted on 06/09/2021 after waking up at 5 a.m. with vertigo, felt like "I was going to fall off the face of the world." Patient had worsening dizziness and unable to ambulate at home with a similar experience in February when she was diagnosed with a recent CVA. Patient is on aspirin 81 mg daily. MRI showed subacute stroke. Carotid ultrasound did not show stenosis back in February. Patient was admitted to rule out TIA. She was found to have persistent benign positional vertigo symptoms and was seen by Dr. Wilian Olvera, neurologist, who recommended continuation of aspirin and Lipitor at the current dose as well as Topamax 25 mg b.i.d. which we started in the hospital. The patient's MRI of the brain was reviewed by Dr. Olvera which showed small vessel ischemic disease of the brain with prior CVA in the splenium of the corpus callosum. MRA of the brain and neck were reportedly unremarkable. Telemetry showed sinus rhythm. Patient was instructed to follow-up with Neurology and to have Physical Therapy and Occupational Therapy for left leg weakness and vestibular rehab exercises. PHYSICAL EXAMINATION ON DISCHARGE: VITAL SIGNS: Temperature 98.5, pulse 52, respiratory rate 18, blood pressure 146/68, 99% on room air. GENERAL: In general, the patient is awake, alert and oriented to person, place and time. NEUROLOGIC: Face is symmetric. Tongue is midline. No pronator drift. Bilateral lower extremities are 5/5. DTRs are 2+ with normal sensation. LABORATORY DATA: Sodium 135, potassium 3.7, chloride 102, bicarbonate 27, BUN 26, creatinine 1.18, glucose of 110, AST 21, ALT 18, alkaline phosphatase 66, total CK 242, MB fraction 1.1, troponin less than 0.02, albumin 3.5. White count 6.7, hemoglobin 11, hematocrit 34, platelet count of 191,000. Coronavirus 19 is negative. IMAGING STUDIES: Please see chart. Carotid artery MRI: No stenosis or occlusion. Brain MRI: Small vessel ischemic disease. MRA of the brain: No stenosis or occlusion. TIME SPENT ON DISCHARGE: 30 minutes MTDD
== END 2021-06-10 14:04 | disposition home health service (06) | DRG 149 ==
LOC: M ED 07:39 → M ED INP 11:41 → ENRESERV 14:00 → M PCU 16:15
PROVIDERS: ADMIT Family Medicine; ATTEND General Practice
DX: H81.10 Benign paroxysmal vertigo, unspecified ear (principal); G45.9 Transient cerebral ischemic attack, unspecified; I10 Essential (primary) hypertension; E78.5 Hyperlipidemia, unspecified; F41.9 Anxiety disorder, unspecified; E03.9 Hypothyroidism, unspecified; J30.2 Other seasonal allergic rhinitis; M54.2 Cervicalgia; K21.9 Gastro-esophageal reflux disease without esophagitis; Z79.82 Long term (current) use of aspirin; Z79.899 Other long term (current) drug therapy; Z88.0 Allergy status to penicillin; Z88.1 Allergy status to other antibiotic agents; Z88.2 Allergy status to sulfonamides; Z88.5 Allergy status to narcotic agent; Z88.8 Allergy status to other drugs, medicaments and biological substances; Z20.822 Contact with and (suspected) exposure to COVID-19; Z86.73 Personal history of transient ischemic attack (TIA), and cerebral infarction without residual deficits

== ENCOUNTER → 2021-06-18 | Outpatient (REF) | payer MEDICARE ==
[~2021-06-18] MED LIST: ACET500T15 PO; ALLE180T33 PO; AMLO2.5T3 PO; ASPI81TA26 PO; ATEN25TA PO; ATOR1TAB19; ATOR1TAB21 PO; BUSP10TA PO; CITRTAB16 PO; COEN100T PO; CVS500CA5 PO; D31000TA2 PO; FURO20TA2 PO; KRIL1CAP7 PO; LORA1TAB4 PO; MECL-86 PO; META28.32 PO; PANT40TA29 PO; POTA1TAB23 PO; SERT25TA21 PO; SPIR-10 PO; SYNT75TA PO; THER1GEL OU; TOPA1TAB PO; VITA-158 PO; VITMTA PO
[2021-06-18 20:54] LABS: CALCIUM LEVEL 8.4 MG/DL (8.8-10.2); CREATININE FOR GFR 1.45 MG/DL (0.55-1.30); POTASSIUM SERUM 3.5 MEQ/L (3.5-5.1)
== END ==
LOC: M SHH 15:30
PROVIDERS: ATTEND Internal Medicine
DX: R42 Dizziness and giddiness (principal); I12.9 Hypertensive chronic kidney disease with stage 1 through stage 4 chronic kidney disease, or unspecified chronic kidney disease; E87.6 Hypokalemia

== ENCOUNTER → 2021-07-02 | Outpatient (REF) | payer MEDICARE ==
[2021-07-03 12:34] LABS: CALCIUM LEVEL 8.7 MG/DL (8.8-10.2); CREATININE FOR GFR 1.51 MG/DL (0.55-1.30); GLOMERULAR FILTRATION RATE 35.2 (>32); POTASSIUM SERUM 4.1 MEQ/L (3.5-5.1)
== END ==
LOC: M SHH 11:20
PROVIDERS: ATTEND Internal Medicine
DX: I12.9 Hypertensive chronic kidney disease with stage 1 through stage 4 chronic kidney disease, or unspecified chronic kidney disease (principal)

== ENCOUNTER → 2021-07-16 | Outpatient (REF) | payer MEDICARE ==
[2021-07-16 16:46] LABS: CALCIUM LEVEL 8.9 MG/DL (8.8-10.2); CREATININE FOR GFR 1.3 MG/DL (0.55-1.30); GLOMERULAR FILTRATION RATE 41.9 (>32); MAGNESIUM LEVEL 2.3 MG/DL (1.8-2.4); POTASSIUM SERUM 3.6 MEQ/L (3.5-5.1)
== END ==
LOC: M SHH 15:36
PROVIDERS: ATTEND Internal Medicine
DX: I12.9 Hypertensive chronic kidney disease with stage 1 through stage 4 chronic kidney disease, or unspecified chronic kidney disease (principal); E83.42 Hypomagnesemia

== ENCOUNTER → 2021-09-01 | Outpatient (REF) | payer MEDICARE ==
[2021-09-01 16:00] LABS: BASO # 0.1 10^3/uL (0.0-0.2); BASO % 0.8 % (0.0-1.0); EOS # 0.1 10^3/uL (0.0-0.5); EOS % 1.5 % (0.0-3.0); HEMATOCRIT 34.8 % (36.0-47.0); HEMOGLOBIN 11.3 g/dl (12.0-15.5); LYMPH # 2.6 10^3/uL (1.5-5.0); LYMPH % 42.3 % (24.0-44.0); MEAN CORPUSCULAR HEMOGLOBIN 29.6 pg (27.0-33.0); MEAN CORPUSCULAR HGB CONC 32.5 g/dl (32.0-36.5); MEAN CORPUSCULAR VOLUME 91.1 fl (80.0-96.0); MONO # 0.8 10^3/uL (0.0-0.8); MONO % 12.1 % (2.0-8.0); NEUTROPHILS # 2.7 10^3/uL (1.5-8.5); NEUTROPHILS % 43.1 % (36.0-66.0); PLATELET COUNT, AUTOMATED 181 10^3/uL (150-450); RED BLOOD COUNT 3.82 10^6/uL (4.00-5.40); WHITE BLOOD COUNT 6.2 10^3/uL (4.0-10.0)
[2021-09-01 17:47] LABS: ALBUMIN 4.3 GM/DL (3.2-5.2); BILIRUBIN,TOTAL 0.5 MG/DL (0.2-1.0); CALCIUM LEVEL 9.3 MG/DL (8.8-10.2); CREATININE FOR GFR 1.44 MG/DL (0.55-1.30); GLOMERULAR FILTRATION RATE 37.2 (>32); MAGNESIUM LEVEL 2.3 MG/DL (1.8-2.4); POTASSIUM SERUM 4.2 MEQ/L (3.5-5.1); TOTAL PROTEIN 7.6 GM/DL (6.4-8.2)
[2021-09-02 09:25] LABS: PERCENT SATURATION 23.9 % (13.2-45.0)
== END ==
LOC: M LABDRAWC 15:28
PROVIDERS: ATTEND Internal Medicine
DX: E78.00 Pure hypercholesterolemia, unspecified (principal); N18.32 Chronic kidney disease, stage 3b; D50.9 Iron deficiency anemia, unspecified

== ENCOUNTER → 2022-02-05 | Outpatient (CLI) | payer MEDICARE ==
[~2022-02-05] MED LIST changes: +CARB1DRO13 OU; -D31000TA2 PO; -THER1GEL OU; +VITA100093 PO
== END ==
LOC: M WHC 01-23 11:05
PROVIDERS: ATTEND Obstetrics & Gynecology
DX: N95.0 Postmenopausal bleeding (principal)

== ENCOUNTER → 2022-03-03 | Outpatient (REF) | payer MEDICARE ==
[2022-03-03 11:39] LABS: BASO % 0.3 % (0.0-1.0); HEMATOCRIT 34.2 % (36.0-47.0); HEMOGLOBIN 11.2 g/dl (12.0-15.5); LYMPH # 2.3 10^3/uL (1.5-5.0); LYMPH % 33.7 % (24.0-44.0); MEAN CORPUSCULAR HEMOGLOBIN 30.4 pg (27.0-33.0); MEAN CORPUSCULAR HGB CONC 32.7 g/dl (32.0-36.5); MEAN CORPUSCULAR VOLUME 92.9 fl (80.0-96.0); MONO # 0.6 10^3/uL (0.0-0.8); MONO % 8.2 % (2.0-8.0); NEUTROPHILS % 57.5 % (36.0-66.0); PLATELET COUNT, AUTOMATED 200 10^3/uL (150-450); RED BLOOD COUNT 3.68 10^6/uL (4.00-5.40); WHITE BLOOD COUNT 6.9 10^3/uL (4.0-10.0)
[2022-03-03 12:13] LABS: CALCIUM LEVEL 9.2 MG/DL (8.8-10.2); CREATININE FOR GFR 1.46 MG/DL (0.55-1.30); GLOMERULAR FILTRATION RATE 36.6 (>32); MAGNESIUM LEVEL 2.5 MG/DL (1.8-2.4); POTASSIUM SERUM 3.9 MEQ/L (3.5-5.1)
[2022-03-04 09:57] LABS: PERCENT SATURATION 14.8 % (13.2-45.0)
== END ==
LOC: M LABDRAWC 11:28
PROVIDERS: ATTEND Internal Medicine
DX: N18.9 Chronic kidney disease, unspecified (principal); E78.00 Pure hypercholesterolemia, unspecified; E83.42 Hypomagnesemia; D63.1 Anemia in chronic kidney disease

== ENCOUNTER → 2022-06-12 | Outpatient (REF) | payer MEDICARE ==
[~2022-06-12] MED LIST changes: +CITRACAL MAXIMU1 TAB PO; -CITRTAB16 PO
[2022-06-12 17:39] LABS: BASO % 0.6 % (0.0-1.0); HEMATOCRIT 33.9 % (36.0-47.0); HEMOGLOBIN 11.1 g/dl (12.0-15.5); LYMPH # 1.9 10^3/uL (1.5-5.0); LYMPH % 40.9 % (24.0-44.0); MEAN CORPUSCULAR HGB CONC 32.7 g/dl (32.0-36.5); MEAN CORPUSCULAR VOLUME 91.6 fl (80.0-96.0); MONO # 0.5 10^3/uL (0.0-0.8); MONO % 11.4 % (2.0-8.0); NEUTROPHILS # 2.2 10^3/uL (1.5-8.5); NEUTROPHILS % 46.9 % (36.0-66.0); PLATELET COUNT, AUTOMATED 176 10^3/uL (150-450); WHITE BLOOD COUNT 4.7 10^3/uL (4.0-10.0)
[2022-06-12 18:25] LABS: CALCIUM LEVEL 8.9 MG/DL (8.8-10.2); CREATININE FOR GFR 1.27 MG/DL (0.55-1.30); MAGNESIUM LEVEL 2.4 MG/DL (1.8-2.4); POTASSIUM SERUM 4.1 MEQ/L (3.5-5.1); THYROID STIMULATING HORMONE 1.92 uIU/ML (0.358-3.740)
== END ==
LOC: M LABDRAWC 16:45
PROVIDERS: ATTEND Internal Medicine
DX: D64.9 Anemia, unspecified (principal); E83.42 Hypomagnesemia; I10 Essential (primary) hypertension

== ENCOUNTER → 2022-06-26 | Outpatient (REF) | payer BC, MEDICARE | LOC: M PLALAB 11:30 | PROVIDERS: ATTEND Nurse Practitioner Family | DX: Z12.4 Encounter for screening for malignant neoplasm of cervix (principal) | CPT/HCPCS: 87624; G0123 ==

== ENCOUNTER → 2022-11-25 | Outpatient (CLI) | payer MEDICARE ==
[~2022-11-25] MED LIST changes: +KRIL1CAP PO; -KRIL1CAP7 PO
== END ==
LOC: M WUC 14:58
PROVIDERS: ATTEND Internal Medicine
DX: U09.9 Post COVID-19 condition, unspecified (principal); R05.9 Cough, unspecified

== ENCOUNTER → 2023-01-08 | Outpatient (REF) | payer MEDICARE ==
[2023-01-08 12:37] LABS: BASO % 0.8 % (0.0-1.0); HEMATOCRIT 35.8 % (36.0-47.0); HEMOGLOBIN 11.6 g/dl (12.0-15.5); LYMPH # 2.1 10^3/uL (1.5-5.0); LYMPH % 40.5 % (24.0-44.0); MEAN CORPUSCULAR HEMOGLOBIN 30.1 pg (27.0-33.0); MEAN CORPUSCULAR HGB CONC 32.4 g/dl (32.0-36.5); MONO # 0.6 10^3/uL (0.0-0.8); MONO % 10.7 % (2.0-8.0); NEUTROPHILS # 2.5 10^3/uL (1.5-8.5); NEUTROPHILS % 47.8 % (36.0-66.0); PLATELET COUNT, AUTOMATED 199 10^3/uL (150-450); RED BLOOD COUNT 3.85 10^6/uL (4.00-5.40); WHITE BLOOD COUNT 5.2 10^3/uL (4.0-10.0)
[2023-01-08 12:41] LABS: BILIRUBIN,TOTAL 0.5 MG/DL (0.3-1.2); CHOLESTEROL RISK RATIO 2.81 (<5); CREATININE FOR GFR 1.15 MG/DL (0.55-1.30); GLOMERULAR FILTRATION RATE 48.1 (>32); HDL CHOLESTEROL 56.2 MG/DL (>40); LDL CHOLESTEROL 70.2 MG/DL (<100); TOTAL PROTEIN 7.1 G/DL (5.7-8.2)
== END ==
LOC: M LABDRAWC 11:37
PROVIDERS: ATTEND Internal Medicine
DX: E03.9 Hypothyroidism, unspecified (principal)

== ENCOUNTER → 2023-01-13 | Outpatient (CLI) | payer MEDICARE | LOC: M WUC 16:00 | PROVIDERS: ATTEND Internal Medicine | DX: R05.9 Cough, unspecified (principal) ==

== ENCOUNTER → 2023-02-26 | Outpatient (REF) | payer MEDICARE ==
[2023-02-26 12:05] LABS: BASO % 0.5 % (0.0-1.0); HEMATOCRIT 34.8 % (36.0-47.0); HEMOGLOBIN 11.2 g/dl (12.0-15.5); LYMPH # 2.4 10^3/uL (1.5-5.0); LYMPH % 39.4 % (24.0-44.0); MEAN CORPUSCULAR HEMOGLOBIN 29.8 pg (27.0-33.0); MEAN CORPUSCULAR HGB CONC 32.2 g/dl (32.0-36.5); MEAN CORPUSCULAR VOLUME 92.6 fl (80.0-96.0); MONO # 0.6 10^3/uL (0.0-0.8); MONO % 10.5 % (2.0-8.0); NEUTROPHILS % 49.4 % (36.0-66.0); PLATELET COUNT, AUTOMATED 204 10^3/uL (150-450); RED BLOOD COUNT 3.76 10^6/uL (4.00-5.40)
[2023-02-26 12:30] LABS: ALBUMIN 4.1 G/DL (3.2-5.2); BILIRUBIN,TOTAL 0.5 MG/DL (0.3-1.2); CALCIUM LEVEL 9.2 MG/DL (8.3-10.6); CHOLESTEROL RISK RATIO 2.51 (<5); CREATININE FOR GFR 1.23 MG/DL (0.55-1.30); GLOMERULAR FILTRATION RATE 44.5 (>32); HDL CHOLESTEROL 57.2 MG/DL (>40); LDL CHOLESTEROL 54.6 MG/DL (<100); NON-HDL-C 86.8 MG/DL; POTASSIUM SERUM 4.2 MMOL/L (3.5-5.1); TOTAL PROTEIN 7.1 G/DL (5.7-8.2)
== END ==
LOC: M LABDRAWC 11:10
PROVIDERS: ATTEND Internal Medicine
DX: I10 Essential (primary) hypertension (principal); D64.9 Anemia, unspecified; E78.00 Pure hypercholesterolemia, unspecified

== ENCOUNTER → 2023-06-04 | Outpatient (REF) | payer MEDICARE ==
[~2023-06-04] MED LIST changes: +LORA1TAB23 PO; -LORA1TAB4 PO
[2023-06-04 17:57] LABS: BASO # 0.1 10^3/uL (0.0-0.2); BASO % 1.1 % (0.0-1.0); EOS # 0.2 10^3/uL (0.0-0.5); EOS % 3.3 % (0.0-3.0); HEMATOCRIT 34.4 % (36.0-47.0); HEMOGLOBIN 11.4 g/dl (12.0-15.5); LYMPH # 1.9 10^3/uL (1.5-5.0); LYMPH % 33.2 % (24.0-44.0); MEAN CORPUSCULAR HEMOGLOBIN 29.2 pg (27.0-33.0); MEAN CORPUSCULAR HGB CONC 33.1 g/dl (32.0-36.5); MONO # 0.6 10^3/uL (0.0-0.8); MONO % 10.9 % (2.0-8.0); NEUTROPHILS # 2.9 10^3/uL (1.5-8.5); NEUTROPHILS % 51.1 % (36.0-66.0); PLATELET COUNT, AUTOMATED 207 10^3/uL (150-450); RED BLOOD COUNT 3.91 10^6/uL (4.00-5.40); WHITE BLOOD COUNT 5.7 10^3/uL (4.0-10.0)
[2023-06-04 18:05] LABS: CALCIUM LEVEL 9.2 MG/DL (8.3-10.6); CREATININE FOR GFR 1.11 MG/DL (0.55-1.30); GLOMERULAR FILTRATION RATE 50.1 (>32); MAGNESIUM LEVEL 1.8 MG/DL (1.8-2.4)
[2023-06-04 18:06] LABS: THYROID STIMULATING HORMONE 1.467 uIU/ML (0.55-4.78)
== END ==
LOC: M LABDRAWC 17:18
PROVIDERS: ATTEND Internal Medicine
DX: K21.9 Gastro-esophageal reflux disease without esophagitis (principal); E78.00 Pure hypercholesterolemia, unspecified; E03.9 Hypothyroidism, unspecified; N18.32 Chronic kidney disease, stage 3b

== ENCOUNTER → 2023-09-02 | Outpatient (REF) | payer MEDICARE ==
[2023-09-02 18:35] LABS: BASO # 0.1 10^3/uL (0.0-0.2); BASO % 0.8 % (0.0-1.0); EOS # 0.2 10^3/uL (0.0-0.5); EOS % 3.3 % (0.0-3.0); HEMATOCRIT 35.1 % (36.0-47.0); HEMOGLOBIN 11.3 g/dl (12.0-15.5); LYMPH # 2.5 10^3/uL (1.5-5.0); LYMPH % 37.4 % (24.0-44.0); MEAN CORPUSCULAR HEMOGLOBIN 28.9 pg (27.0-33.0); MEAN CORPUSCULAR HGB CONC 32.2 g/dl (32.0-36.5); MEAN CORPUSCULAR VOLUME 89.8 fl (80.0-96.0); MONO # 0.7 10^3/uL (0.0-0.8); MONO % 10.1 % (2.0-8.0); NEUTROPHILS # 3.2 10^3/uL (1.5-8.5); NEUTROPHILS % 48.2 % (36.0-66.0); PLATELET COUNT, AUTOMATED 194 10^3/uL (150-450); RED BLOOD COUNT 3.91 10^6/uL (4.00-5.40); WHITE BLOOD COUNT 6.6 10^3/uL (4.0-10.0)
[2023-09-02 18:47] LABS: CALCIUM LEVEL 8.8 MG/DL (8.3-10.6); CREATININE FOR GFR 1.11 MG/DL (0.55-1.30); POTASSIUM SERUM 4.2 MMOL/L (3.5-5.1)
== END ==
LOC: M LABDRAWC 17:28
PROVIDERS: ATTEND Internal Medicine
DX: D64.9 Anemia, unspecified (principal); E78.00 Pure hypercholesterolemia, unspecified; E87.6 Hypokalemia

== ENCOUNTER → 2023-12-13 | Outpatient (REF) | payer MEDICARE, BC ==
[2023-12-13 18:44] LABS: BASO % 0.7 % (0.0-1.0); EOS # 0.3 10^3/uL (0.0-0.5); EOS % 4.3 % (0.0-3.0); HEMATOCRIT 36.9 % (36.0-47.0); HEMOGLOBIN 11.8 g/dl (12.0-15.5); LYMPH # 2.2 10^3/uL (1.5-5.0); LYMPH % 36.6 % (24.0-44.0); MEAN CORPUSCULAR HEMOGLOBIN 29.4 pg (27.0-33.0); MEAN CORPUSCULAR VOLUME 91.8 fl (80.0-96.0); MONO # 0.6 10^3/uL (0.0-0.8); NEUTROPHILS % 49.1 % (36.0-66.0); PLATELET COUNT, AUTOMATED 210 10^3/uL (150-450); RED BLOOD COUNT 4.02 10^6/uL (4.00-5.40); WHITE BLOOD COUNT 6.1 10^3/uL (4.0-10.0)
[2023-12-13 19:08] LABS: ALBUMIN 4.2 G/DL (3.2-5.2); BILIRUBIN,TOTAL 0.5 MG/DL (0.3-1.2); CALCIUM LEVEL 9.2 MG/DL (8.3-10.6); CREATININE FOR GFR 1.15 MG/DL (0.55-1.30); MAGNESIUM LEVEL 1.9 MG/DL (1.8-2.4); POTASSIUM SERUM 4.3 MMOL/L (3.5-5.1); THYROID STIMULATING HORMONE 0.908 uIU/ML (0.55-4.78); TOTAL PROTEIN 7.3 G/DL (5.7-8.2)
== END ==
LOC: M LABDRAWC 17:15
PROVIDERS: ATTEND Internal Medicine
DX: N18.32 Chronic kidney disease, stage 3b (principal); E03.9 Hypothyroidism, unspecified; D63.1 Anemia in chronic kidney disease

== ENCOUNTER → 2024-03-30 | Outpatient (REF) | payer MEDICARE, BC ==
[~2024-03-30] MED LIST changes: +CRAN500C11 PO; -CVS500CA5 PO
[2024-03-30 18:00] LABS: BASO # 0.1 10^3/uL (0.0-0.2); BASO % 0.8 % (0.0-1.0); EOS # 0.1 10^3/uL (0.0-0.5); EOS % 1.6 % (0.0-3.0); HEMATOCRIT 36.9 % (36.0-47.0); HEMOGLOBIN 11.9 g/dl (12.0-15.5); LYMPH % 31.1 % (24.0-44.0); MEAN CORPUSCULAR HEMOGLOBIN 29.1 pg (27.0-33.0); MEAN CORPUSCULAR HGB CONC 32.2 g/dl (32.0-36.5); MEAN CORPUSCULAR VOLUME 90.2 fl (80.0-96.0); MONO # 0.6 10^3/uL (0.0-0.8); MONO % 10.2 % (2.0-8.0); NEUTROPHILS # 3.5 10^3/uL (1.5-8.5); NEUTROPHILS % 56.1 % (36.0-66.0); PLATELET COUNT, AUTOMATED 208 10^3/uL (150-450); RED BLOOD COUNT 4.09 10^6/uL (4.00-5.40); WHITE BLOOD COUNT 6.3 10^3/uL (4.0-10.0)
[2024-03-30 18:23] LABS: ALBUMIN 4.3 G/DL (3.2-5.2); BILIRUBIN,TOTAL 0.7 MG/DL (0.3-1.2); CALCIUM LEVEL 9.4 MG/DL (8.3-10.6); CHOLESTEROL RISK RATIO 2.74 (<5); CREATININE FOR GFR 1.19 MG/DL (0.55-1.30); GLOMERULAR FILTRATION RATE 46.1 (>32); HDL CHOLESTEROL 53.2 MG/DL (>40); LDL CHOLESTEROL 65.8 MG/DL (<100); MAGNESIUM LEVEL 1.8 MG/DL (1.8-2.4); NON-HDL-C 92.8 MG/DL; TOTAL PROTEIN 7.4 G/DL (5.7-8.2)
[2024-03-30 18:24] LABS: THYROID STIMULATING HORMONE 0.204 uIU/ML (0.55-4.78)
== END ==
LOC: M LABDRAWC 16:39
PROVIDERS: ATTEND Internal Medicine
DX: D64.9 Anemia, unspecified (principal); E78.00 Pure hypercholesterolemia, unspecified; Z13.89 Encounter for screening for other disorder; E03.9 Hypothyroidism, unspecified; I10 Essential (primary) hypertension

== ENCOUNTER → 2024-06-29 | Outpatient (REF) | payer MEDICARE ==
[2024-06-29 12:31] LABS: BASO % 0.7 % (0.0-1.0); EOS # 0.2 10^3/uL (0.0-0.5); EOS % 2.9 % (0.0-3.0); HEMATOCRIT 35.9 % (36.0-47.0); HEMOGLOBIN 11.5 g/dl (12.0-15.5); LYMPH % 36.5 % (24.0-44.0); MEAN CORPUSCULAR HEMOGLOBIN 29.3 pg (27.0-33.0); MEAN CORPUSCULAR VOLUME 91.3 fl (80.0-96.0); MONO # 0.6 10^3/uL (0.0-0.8); MONO % 11.2 % (2.0-8.0); NEUTROPHILS # 2.7 10^3/uL (1.5-8.5); NEUTROPHILS % 48.3 % (36.0-66.0); PLATELET COUNT, AUTOMATED 222 10^3/uL (150-450); RED BLOOD COUNT 3.93 10^6/uL (4.00-5.40); WHITE BLOOD COUNT 5.5 10^3/uL (4.0-10.0)
[2024-06-29 12:39] LABS: CREATININE FOR GFR 1.2 MG/DL (0.55-1.30); GLOMERULAR FILTRATION RATE 45.6 (>32)
[2024-06-29 12:41] LABS: THYROID STIMULATING HORMONE 0.316 uIU/ML (0.55-4.78)
== END ==
LOC: M LABDRAWC 11:28
PROVIDERS: ATTEND Internal Medicine
DX: I12.9 Hypertensive chronic kidney disease with stage 1 through stage 4 chronic kidney disease, or unspecified chronic kidney disease (principal); E03.9 Hypothyroidism, unspecified; Z86.73 Personal history of transient ischemic attack (TIA), and cerebral infarction without residual deficits

== ENCOUNTER → 2024-07-19 | Outpatient (CLI) | payer MEDICARE | LOC: M WUC 15:37 | PROVIDERS: ATTEND Internal Medicine | DX: R05.9 Cough, unspecified (principal) ==

== ENCOUNTER → 2024-09-28 | Outpatient (REF) | payer MEDICARE ==
[~2024-09-28] MED LIST changes: -CRAN500C11 PO; +CVS500CA5 PO
[2024-09-28 12:01] LABS: HEMATOCRIT 34.7 % (36.0-47.0); HEMOGLOBIN 11.4 g/dl (12.0-15.5); MEAN CORPUSCULAR HEMOGLOBIN 29.5 pg (27.0-33.0); MEAN CORPUSCULAR HGB CONC 32.9 g/dl (32.0-36.5); MEAN CORPUSCULAR VOLUME 89.9 fl (80.0-96.0); PLATELET COUNT, AUTOMATED 212 10^3/uL (150-450); RED BLOOD COUNT 3.86 10^6/uL (4.00-5.40); WHITE BLOOD COUNT 5.1 10^3/uL (4.0-10.0)
[2024-09-28 12:29] LABS: ALBUMIN 4.1 G/DL (3.2-5.2); BILIRUBIN,TOTAL 0.6 MG/DL (0.3-1.2); CALCIUM LEVEL 9.3 MG/DL (8.3-10.6); CREATININE FOR GFR 1.24 MG/DL (0.55-1.30); GLOMERULAR FILTRATION RATE 43.9 (>32); MAGNESIUM LEVEL 1.8 MG/DL (1.8-2.4); POTASSIUM SERUM 4.2 MMOL/L (3.5-5.1); TOTAL PROTEIN 7.5 G/DL (5.7-8.2)
[2024-09-28 12:30] LABS: THYROID STIMULATING HORMONE 3.73 uIU/ML (0.55-4.78)
== END ==
LOC: M LABDRAWC 11:05
PROVIDERS: ATTEND Internal Medicine
DX: I12.9 Hypertensive chronic kidney disease with stage 1 through stage 4 chronic kidney disease, or unspecified chronic kidney disease (principal); E03.9 Hypothyroidism, unspecified; N18.32 Chronic kidney disease, stage 3b

== ENCOUNTER → 2024-11-27 | Outpatient (REF) | payer MEDICARE | LOC: M LAB REF 16:00 | PROVIDERS: ATTEND Internal Medicine | DX: M54.50 Low back pain, unspecified (principal); N39.0 Urinary tract infection, site not specified ==

== ENCOUNTER → 2025-01-19 | Outpatient (REF) | payer MEDICARE ==
[2025-01-19 17:34] LABS: BASO # 0.1 10^3/uL (0.0-0.2); BASO % 0.9 % (0.0-1.0); EOS # 0.3 10^3/uL (0.0-0.5); EOS % 4.5 % (0.0-3.0); HEMOGLOBIN 11.5 g/dl (12.0-15.5); LYMPH # 2.2 10^3/uL (1.5-5.0); LYMPH % 30.6 % (24.0-44.0); MEAN CORPUSCULAR HEMOGLOBIN 29.6 pg (27.0-33.0); MEAN CORPUSCULAR HGB CONC 31.9 g/dl (32.0-36.5); MEAN CORPUSCULAR VOLUME 92.5 fl (80.0-96.0); MONO # 0.7 10^3/uL (0.0-0.8); MONO % 9.6 % (2.0-8.0); NEUTROPHILS # 3.8 10^3/uL (1.5-8.5); NEUTROPHILS % 54.3 % (36.0-66.0); PLATELET COUNT, AUTOMATED 217 10^3/uL (150-450); RED BLOOD COUNT 3.89 10^6/uL (4.00-5.40); WHITE BLOOD COUNT 7.1 10^3/uL (4.0-10.0)
[2025-01-19 17:44] LABS: BILIRUBIN,TOTAL 0.6 MG/DL (0.3-1.2); CALCIUM LEVEL 9.3 MG/DL (8.3-10.6); CREATININE FOR GFR 1.1 MG/DL (0.55-1.30); GLOMERULAR FILTRATION RATE 50.4 (>32); TOTAL PROTEIN 7.5 G/DL (5.7-8.2)
[2025-01-19 17:45] LABS: THYROID STIMULATING HORMONE 0.68 uIU/ML (0.55-4.78)
== END ==
LOC: M LABDRAWC 16:28
PROVIDERS: ATTEND Internal Medicine
DX: E03.9 Hypothyroidism, unspecified (principal); I12.9 Hypertensive chronic kidney disease with stage 1 through stage 4 chronic kidney disease, or unspecified chronic kidney disease; D63.1 Anemia in chronic kidney disease

== ENCOUNTER 2025-02-21 05:59 | Day surgery (SDC) | payer MEDICARE ==
[~2025-02-21] VITALS: Ht 147.3 cm; Wt 58.4 kg
[2025-02-21] VITALS (10 sets, daily range): BP systolic 117–169; BP diastolic 40–81; TEMP 97–97.7; O2SAT 95–97
[~2025-02-21 05:59] MED LIST changes: +AZO1CAP PO; +CALCCAP4 PO; +CETI-25 PO; +THERTAB52 PO
[2025-02-21] MEDS ORDERED: LR 1,000 ML IV SCH (06:35)
[2025-02-21 06:56] LABS: HEMATOCRIT 35.2 % (36.0-47.0); HEMOGLOBIN 11.6 g/dl (12.0-15.5); PLATELET COUNT, AUTOMATED 219 10^3/uL (150-450); RED BLOOD COUNT 3.87 10^6/uL (4.00-5.40); WHITE BLOOD COUNT 6.9 10^3/uL (4.0-10.0)
[2025-02-21] MEDS ORDERED: ONDANSETRON 4MG 2ML VIAL As Ordered ONE (06:58)
[2025-02-21] MEDS ORDERED: LIDOCAINE 2% 100MG/5ML SDV (FOR ANES.) As Ordered ONE (06:58)
[2025-02-21] MEDS ORDERED: fentaNYL 100 MCG/2 ML INJECTION As Ordered ONE (06:58)
[2025-02-21] MEDS ORDERED: propofoL 200 MG/20 ML VIAL As Ordered ONE (06:58)
[2025-02-21] MEDS: SCOPOLAMINE 1MG TRANSDERMAL PATCH TOP ONE (07:16)
[2025-02-21] MEDS: METHYLENE BLUE 0.5% (5MG/ML) 10 ML AMP (PROVAYBLUE) As Ordered ONE (07:22)
[2025-02-21] MEDS: LIDOCAINE W/EPINEPHRINE 1% 20ML VIAL As Ordered ONE (07:23)
[2025-02-21] MEDS: CLINDAMYCIN 600MG/50ML PREMIX BAG As Ordered ONE (07:37)
[2025-02-21] MEDS ORDERED: PHENYLephrine 500MCG 5ML (100MCG/ML) SYRINGE As Ordered ONE (07:53)
[2025-02-21] MEDS ORDERED: ePHEDrine SULFATE 25 MG/5 ML(5MG/ML) SYRINGE As Ordered ONE (07:55)
[2025-02-21] MEDS ORDERED: fentaNYL 100 MCG/2 ML INJECTION IV PRN (09:40)
[2025-02-21] MEDS ORDERED: ONDANSETRON 4MG 2ML VIAL IV PRN (09:40)
[2025-02-21] MEDS ORDERED: hydrALAZINE 20MG/ML 1ML VIAL As Ordered ONE (09:52)
[2025-02-21] MEDS: hydrALAZINE 20MG/ML 1ML VIAL IV PRN (09:55)
[2025-02-21] MEDS ORDERED: LOSA25TA13 PO (15:14)
[2025-02-21] MEDS ORDERED: HOME MED LIST COMPLETE! XX SCH (15:15)
[2025-02-21] MEDS ORDERED: ACETAMINOPHEN 500 MG TAB PO PRN (17:15)
[2025-02-21] MEDS: LOSARTAN 25 MG TAB PO SCH (22:18)
[2025-02-21] MEDS: LR 1,000 ML IV SCH (22:19)
[2025-02-21] MEDS: atenoloL 25 MG TAB PO SCH (22:19)
[2025-02-22 00:15] VITALS: BP 116/43; TEMP 97.7; O2SAT 95
[2025-02-22 03:08] VITALS: BP 116/45; TEMP 98.6; O2SAT 96
[2025-02-22 08:00] VITALS: BP 126/53; TEMP 97.9; O2SAT 98
[2025-02-22 08:40] LABS: HEMATOCRIT 31.5 % (36.0-47.0); HEMOGLOBIN 10.2 g/dl (12.0-15.5); MEAN CORPUSCULAR HEMOGLOBIN 29.8 pg (27.0-33.0); MEAN CORPUSCULAR HGB CONC 32.4 g/dl (32.0-36.5); MEAN CORPUSCULAR VOLUME 92.1 fl (80.0-96.0); PLATELET COUNT, AUTOMATED 196 10^3/uL (150-450); RED BLOOD COUNT 3.42 10^6/uL (4.00-5.40); WHITE BLOOD COUNT 10.2 10^3/uL (4.0-10.0)
[2025-02-22] MEDS ORDERED: FUROSEMIDE 20 MG TAB PO SCH (17:00)
== END 2025-02-22 12:07 | disposition home or self-care (01) ==
LOC: M SDC 05:59 → M MSPAV 11:07 → M SDC 02-22 12:07
PROVIDERS: ATTEND Obstetrics & Gynecology
DX: N81.10 Cystocele, unspecified (principal); N81.6 Rectocele; R32 Unspecified urinary incontinence; Z86.73 Personal history of transient ischemic attack (TIA), and cerebral infarction without residual deficits; Z88.0 Allergy status to penicillin; Z88.2 Allergy status to sulfonamides; Z88.1 Allergy status to other antibiotic agents; Z88.8 Allergy status to other drugs, medicaments and biological substances; Z88.5 Allergy status to narcotic agent; Z91.041 Radiographic dye allergy status; Z79.899 Other long term (current) drug therapy
CPT/HCPCS: 36415; 57260; 57288; 85027; 86850; 86900; 86901; 88302; C1771; J0360; J0665; J0737; J1100; J2371; J2405; J3010

== ENCOUNTER → 2025-07-20 | Outpatient (CLI) | payer MEDICARE ==
[~2025-07-20] MED LIST changes: +LOSA25TA13 PO
== END ==
LOC: M WHC 13:11
PROVIDERS: ATTEND Obstetrics & Gynecology
DX: Z12.31 Encounter for screening mammogram for malignant neoplasm of breast (principal); R92.323 Mammographic fibroglandular density, bilateral breasts